=== PATIENT | female | born 1975 | race American Indian/Alaskan Native ===

== ENCOUNTER 2017-10-30 08:14 | Outpatient (CLI) | payer OTHER ==
--- NOTE | 2017-10-31 13:48 | Magnetic Resonance Report ---
BILATERAL BREAST MRI WITHOUT AND WITH CONTRAST: 10/30/17 08:14:00 CLINICAL: Family history of breast cancer and abnormal mammogram. COMPARISON:07/11/17 and 08/27/17 mammograms demonstrating a left upper outer focal parenchymal asymmetry. TECHNIQUE: Axial 1.0-mm T1 without, axial high resolution 2.0-mm T2 and axial 1.0-mm dynamic Vibrant high-resolution postcontrast T1 fat saturation sequences on a 1.5 [place] magnet. The examination was performed with an 8 channel dedicated [place] breast coil. Post processing with CAD and subtraction was performed on an [email or web address] workstation. 15.0 cc of Multihance was injected without incident for the contrast portion of the exam. Consent was obtained prior to the administration of the contrast. FINDINGS: Right: Minimal background parenchymal enhancement. No mass or suspicious enhancement. No suspicious right axillary or right internal mammary lymph nodes. Left: Minimal background parenchymal enhancement. No mass or suspicious enhancement. Asymmetric but normal parenchymal structures in the upper outer quadrant correlate with the focal asymmetric density on the mammograms. This breast tissue demonstrates normal enhancement with 100% type I persistent waveform. No suspicious left axillary or left internal mammary lymph nodes. IMPRESSION: Negative study with asymmetric normal breast tissue in the upper outer left breast and negative right breast. Recommend routine mammographic screening. 1 -- Negative
== END 2017-10-30 08:15 | disposition home or self-care (01) ==
LOC: SPVIMAG 08:14
PROVIDERS: ATTEND Surgery
DX: Z80.3 Family history of malignant neoplasm of breast (principal)
CPT/HCPCS: A9577; C8908; 77059